=== PATIENT | male | born 1945 | race Caucasian/White ===

== ENCOUNTER 2024-06-09 08:51 | Inpatient (IN) | payer BC, MEDICARE, OTHER ==
[2024-06-09] MEDS ORDERED: Aspirin Chewable 81 MG TAB ONE (10:04)
[2024-06-09 10:11] LABS: ALT (SGPT) 36 U/L (8-55); AST (SGOT) 28 U/L (5-34); Alkaline Phosphatase 29 U/L (40-110); Anion Gap 16 mmol/L (10-20); BUN (Urea Nitrogen) 20 mg/dL (8.4-25.7); Bilirubin, Total 0.3 mg/dL (0.2-1.2); Calc. Creatinine Clearance 0 mL/min (70-130); Carbon Dioxide 27 mmol/L (23-31); Chloride 98 mmol/L (98-107); Estimated GFR 42; Glucose 172 mg/dL (83-110); Potassium 4.1 mmol/L (3.5-5.1); Sodium 137 mmol/L (136-145)
[2024-06-09 10:17] LABS: #Basophils Less than 0.03 10x3/uL (0.0-0.2); %Basophils 0.4 % (0.0-1.0); %Eosinophils 2.5 % (0.0-10.0); %Lymphocytes 15.1 % (21.0-51.0); %Monocytes 7.5 % (0.0-10.0); %Neutrophils 73.1 % (42.0-75.0); Hematocrit 38.2 % (42.0-52.0); Hemoglobin 13.3 g/dL (14.0-18.0); Mean Corpuscular HGB CONC 34.8 g/dL (32.0-36.0); Mean Corpuscular Hemoglobin 31.1 pg (27.0-31.0); Mean Corpuscular Volume 89.3 fL (78.0-98.0); Mean Platelet Volume 10.4 fL (7.4-10.4); Platelet Count 159 10x3/uL (130-400); RBC Distribution Width 13.9 % (11.5-14.5); Red Blood Cell (RBC) Count 4.28 mill/uL (4.70-6.10); Troponin I Less than 0.010 ng/mL (< 0.028)
[2024-06-09 10:20] LABS: PTT 27.9 sec (22.9-36.1); Prothrombin Time 13.3 sec (12.0-14.7)
[2024-06-09] MEDS ORDERED: Calcium Carbonate 500 MG ChewTAB PO PRN (10:44)
[2024-06-09] MEDS ORDERED: Ondansetron ODT 4 MG TAB PO PRN (10:44)
[2024-06-09] MEDS ORDERED: hydrALAZINE 20 MG/ML VIAL SLOW IVP PRN (10:47)
[2024-06-09] MEDS: Lactated Ringer's 1,000 ML IV SCH (14:19)
[2024-06-09 14:44] VITALS: BMI 25.3
[2024-06-09] MEDS ORDERED: Dextrose 50% Abboject 50 ML SYRINGE SLOW IVP PRN (16:10)
[2024-06-09] MEDS ORDERED: Dextrose 5% in Water 1,000 ML IV PRN (16:10)
[2024-06-09] MEDS ORDERED: Glucagon 1 MG/ML KIT IM PRN (16:10)
[2024-06-09] MEDS: Insulin Lispro 100 UNIT/ML 10 ML VIAL SC PRN (17:31)
[2024-06-09 18:44] LABS: Creatinine, Urine 88.37 mg/dL (22-328)
[2024-06-09] MEDS: Atorvastatin Calcium 40 MG TAB PO SCH (20:18)
[2024-06-09] MEDS: Allopurinol 100 MG TAB PO SCH (20:18)
[2024-06-09] MEDS: traZODone HCl 50 MG TAB PO SCH (21:22)
[2024-06-09] MEDS: Melatonin 3 MG TAB PO SCH (21:22)
[2024-06-10 04:37] LABS: #Basophils 0.03 10x3/uL (0.0-0.2); %Basophils 0.5 % (0.0-1.0); %Lymphocytes 23.3 % (21.0-51.0); %Monocytes 9.1 % (0.0-10.0); %Neutrophils 63.3 % (42.0-75.0); Hematocrit 36.6 % (42.0-52.0); Hemoglobin 12.3 g/dL (14.0-18.0); Mean Corpuscular HGB CONC 33.6 g/dL (32.0-36.0); Mean Corpuscular Hemoglobin 30.6 pg (27.0-31.0); Mean Platelet Volume 10.2 fL (7.4-10.4); Platelet Count 153 10x3/uL (130-400); Red Blood Cell (RBC) Count 4.02 mill/uL (4.70-6.10)
[2024-06-10] MEDS: Acetaminophen 325 MG TAB PO PRN (05:35)
[2024-06-10 05:37] LABS: Anion Gap 13 mmol/L (10-20); BUN (Urea Nitrogen) 16 mg/dL (8.4-25.7); Calc. Creatinine Clearance 44 mL/min (70-130); Calcium 9.8 mg/dL (7.8-10.44); Carbon Dioxide 29 mmol/L (23-31); Cardiac Risk 6.2 (Less than 4.5); Chloride 100 mmol/L (98-107); Cholesterol 181 mg/dl (< 200 Desired); Estimated GFR 50; Glucose 141 mg/dL (83-110); HDL Cholesterol 29 mg/dL (>60 Neg Risk); Potassium 3.5 mmol/L (3.5-5.1); Sodium 138 mmol/L (136-145); Triglycerides 634 mg/dL (Less than 150)
[2024-06-10] MEDS ORDERED: Electrolyte Replacement Protocol 1 EACH FS PRN (07:46)
[2024-06-10] MEDS ORDERED: Electrolyte Replacement Protocol FS PRN (08:00)
[2024-06-10] MEDS: Lorazepam 2 MG/ML VIAL SLOW IVP PRN (08:43)
[2024-06-10] MEDS ORDERED: Aspirin 81 mg Enteric Coated Tablet PO SCH (09:00)
[2024-06-10] MEDS: Multivit, Therapeutic 1 TAB PO SCH ×2 (10:27→20:26)
[2024-06-10] MEDS: DULoxetine 30 MG CAP PO SCH (10:27)
[2024-06-10] MEDS: Fish Oil 1,000 MG CAP PO SCH (10:27)
[2024-06-10] MEDS: Fenofibrate 48 MG TAB PO SCH (10:28)
[2024-06-10] MEDS: Pantoprazole 40 MG DR.TAB PO SCH (10:28)
[2024-06-10] MEDS: Potassium Chloride 20 MEQ TAB PO SCH (10:28)
[2024-06-10] MEDS: Dexamethasone 4 mg/ml Vial SLOW IVP SCH (10:29)
[2024-06-10] MEDS: levETIRAcetam 500 MG (5 mL) VIAL SLOW IVP SCH (10:29)
[2024-06-10 15:03] LABS: Potassium 4.7 mmol/L (3.5-5.1)
[2024-06-10] MEDS ORDERED: traZODone HCl 50 MG TAB PO PRN (19:06)
[2024-06-10] MEDS: glipiZIDE 10 MG TAB PO SCH (20:25)
[2024-06-10] MEDS: Metoprolol Succinate XL 25 MG ER.TAB PO SCH (20:25)
[2024-06-10] MEDS: Atorvastatin Calcium 20 MG TAB PO SCH (20:26)
[2024-06-10] MEDS: levETIRAcetam 500 MG TAB PO SCH (20:26)
[2024-06-10] MEDS: Senokot S 8.6-50 MG TAB PO SCH (20:26)
[2024-06-10] MEDS: Insulin Lispro 100 UNIT/ML 10 ML VIAL SC PRN (20:27)
[2024-06-10] MEDS: traZODone HCl 50 MG TAB PO PRN (20:29)
[2024-06-11 04:23] LABS: #Basophils Less than 0.03 10x3/uL (0.0-0.2); #Eosinophils Less than 0.03 10x3/uL (0.0-0.7); %Basophils 0.1 % (0.0-1.0); %Lymphocytes 8.2 % (21.0-51.0); %Monocytes 3.5 % (0.0-10.0); %Neutrophils 87.2 % (42.0-75.0); Hematocrit 38.1 % (42.0-52.0); Hemoglobin 13.2 g/dL (14.0-18.0); Mean Corpuscular HGB CONC 34.6 g/dL (32.0-36.0); Mean Corpuscular Hemoglobin 31.2 pg (27.0-31.0); Mean Corpuscular Volume 90.1 fL (78.0-98.0); Mean Platelet Volume 10.5 fL (7.4-10.4); Platelet Count 163 10x3/uL (130-400); RBC Distribution Width 13.6 % (11.5-14.5); Red Blood Cell (RBC) Count 4.23 mill/uL (4.70-6.10)
[2024-06-11 04:39] LABS: Anion Gap 15 mmol/L (10-20); BUN (Urea Nitrogen) 22 mg/dL (8.4-25.7); Calc. Creatinine Clearance 43 mL/min (70-130); Calcium 10.3 mg/dL (7.8-10.44); Carbon Dioxide 27 mmol/L (23-31); Chloride 98 mmol/L (98-107); Estimated GFR 49; Glucose 247 mg/dL (83-110); Magnesium 1.5 mg/dL (1.6-2.6); Potassium 4.6 mmol/L (3.5-5.1); Sodium 135 mmol/L (136-145)
[2024-06-11] MEDS: glipiZIDE 10 MG TAB PO SCH (09:19)
[2024-06-11] MEDS: Magnesium 2 GM/50 ML(in water) 2 GM in Premix 1 BAG IVPB SCH (09:20)
[2024-06-11] MEDS: Saxagliptin 5 MG TABLET PO SCH (10:48)
[2024-06-11 11:20] LABS: Prothrombin Time 13.3 sec (12.0-14.7)
[2024-06-11] MEDS: Insulin Glargine 30 UNITS/0.3 ML VIAL SC SCH (22:13)
[2024-06-12] MEDS ORDERED: Insulin Glargine 30 UNITS/0.3 ML VIAL SC SCH (09:00)
[2024-06-12] MEDS: Insulin Glargine 30 UNITS/0.3 ML VIAL SC SCH (11:54)
[2024-06-13 03:53] LABS: #Basophils Less than 0.03 10x3/uL (0.0-0.2); #Eosinophils Less than 0.03 10x3/uL (0.0-0.7); %Basophils 0.1 % (0.0-1.0); %Lymphocytes 9.7 % (21.0-51.0); %Monocytes 6.4 % (0.0-10.0); %Neutrophils 81.6 % (42.0-75.0); Hematocrit 35.5 % (42.0-52.0); Hemoglobin 12.4 g/dL (14.0-18.0); Mean Corpuscular HGB CONC 34.9 g/dL (32.0-36.0); Mean Corpuscular Hemoglobin 31.5 pg (27.0-31.0); Mean Corpuscular Volume 90.1 fL (78.0-98.0); Mean Platelet Volume 10.3 fL (7.4-10.4); Platelet Count 159 10x3/uL (130-400); RBC Distribution Width 13.7 % (11.5-14.5); Red Blood Cell (RBC) Count 3.94 mill/uL (4.70-6.10)
[2024-06-13 04:27] LABS: Anion Gap 15 mmol/L (10-20); BUN (Urea Nitrogen) 29 mg/dL (8.4-25.7); Calc. Creatinine Clearance 40 mL/min (70-130); Calcium 9.8 mg/dL (7.8-10.44); Carbon Dioxide 28 mmol/L (23-31); Chloride 96 mmol/L (98-107); Estimated GFR 45; Glucose 191 mg/dL (83-110); Magnesium 1.6 mg/dL (1.6-2.6); Potassium 4.6 mmol/L (3.5-5.1); Sodium 134 mmol/L (136-145)
[2024-06-13] MEDS: Insulin Glargine 30 UNITS/0.3 ML VIAL SC SCH (07:49)
[2024-06-13] MEDS: Magnesium 2 GM/50 ML(in water) 2 GM in Premix 1 BAG IVPB SCH (07:51)
[2024-06-13] MEDS: Sodium Chloride 0.9% 500 ML IV SCH (12:35)
[2024-06-13] MEDS: Dexamethasone 4 mg/ml Vial SLOW IVP SCH (13:08)
[2024-06-14 04:55] LABS: Anion Gap 11 mmol/L (10-20); BUN (Urea Nitrogen) 35 mg/dL (8.4-25.7); Calc. Creatinine Clearance 43 mL/min (70-130); Calcium 9.4 mg/dL (7.8-10.44); Carbon Dioxide 28 mmol/L (23-31); Chloride 99 mmol/L (98-107); Estimated GFR 49; Glucose 162 mg/dL (83-110); Magnesium 1.8 mg/dL (1.6-2.6); Potassium 4.4 mmol/L (3.5-5.1); Sodium 134 mmol/L (136-145)
[2024-06-14] MEDS: Magnesium 2 GM/50 ML(in water) 2 GM in Premix 1 BAG IVPB SCH (10:12)
[2024-06-14 11:02] LABS: Hemoglobin A1c 7.3 % (4.0-6.0)
[2024-06-15 04:31] LABS: Anion Gap 13 mmol/L (10-20); BUN (Urea Nitrogen) 34 mg/dL (8.4-25.7); Calc. Creatinine Clearance 43 mL/min (70-130); Calcium 9.5 mg/dL (7.8-10.44); Carbon Dioxide 27 mmol/L (23-31); Chloride 98 mmol/L (98-107); Estimated GFR 49; Glucose 225 mg/dL (83-110); Magnesium 1.8 mg/dL (1.6-2.6); Potassium 4.5 mmol/L (3.5-5.1); Sodium 133 mmol/L (136-145)
[2024-06-15] MEDS: Dexamethasone 4 mg/ml Vial SLOW IVP SCH (06:12)
[2024-06-15] MEDS ORDERED: Bacitracin Zinc Ointment 30 gm TUBE ONE (08:22)
[2024-06-15] MEDS ORDERED: Acetaminophen 500 MG TAB ONE (08:48)
[2024-06-15] MEDS ORDERED: fentaNYL PF 100 MCG/2 ML SYRINGE ONE (09:05)
[2024-06-15] MEDS ORDERED: Rocuronium Bromide 10 MG/ML (10ML VIAL) ONE (09:06)
[2024-06-15] MEDS ORDERED: Dexmedetomidine 200 MCG/2 ML VIAL ONE (09:06)
[2024-06-15] MEDS ORDERED: PROPOFOL 20 ML ONE (09:06)
[2024-06-15] MEDS ORDERED: Lidocaine 1% PF 5 ML VIAL ONE (09:06)
[2024-06-15] MEDS ORDERED: CEFAZOLIN 2 GM VIAL ONE (09:18)
[2024-06-15] MEDS ORDERED: Ondansetron PF 4 MG/2 ML Vial IVP PRN (09:48)
[2024-06-15] MEDS ORDERED: CEFAZOLIN 2 GM in Sodium Chloride 0.9% 100 ML IVPB SCH (10:00)
[2024-06-15] MEDS ORDERED: Dexamethasone 20 MG/5 ML VIAL ONE (10:02)
[2024-06-15] MEDS ORDERED: PHENYLEPHRINE-NS 100 MCG/ML 10 ML SYRINGE ONE (10:13)
[2024-06-15] MEDS ORDERED: Ondansetron PF 4 MG/2 ML Vial ONE (11:02)
[2024-06-15] MEDS ORDERED: SUGAMMADEX SODIUM 200 MG/2 ML VIAL ONE (11:25)
[2024-06-15] MEDS ORDERED: Promethazine HCl 25 MG/ML VIAL IM PRN (11:35)
[2024-06-15] MEDS ORDERED: Ondansetron HCl/PF 4 MG/2 ML Vial IVP PRN (11:35)
[2024-06-15] MEDS ORDERED: fentaNYL 50 mcg/mL 1 mL Vial ONE ×2 (12:11→12:36)
[2024-06-15] MEDS: Acetaminophen/Codeine 30-300mg Tablet PO PRN (14:39)
[2024-06-15] MEDS: Magnesium 2 GM/50 ML(in water) 2 GM in Premix 1 BAG IVPB SCH (16:35)
[2024-06-15 20:27] VITALS: BMI 25.3
[2024-06-15] MEDS: CEFAZOLIN 2 GM in Sodium Chloride 0.9% 100 ML IVPB SCH (21:55)
[2024-06-16 04:25] LABS: Anion Gap 14 mmol/L (10-20); BUN (Urea Nitrogen) 32 mg/dL (8.4-25.7); Calc. Creatinine Clearance 43 mL/min (70-130); Calcium 9.4 mg/dL (7.8-10.44); Carbon Dioxide 29 mmol/L (23-31); Chloride 98 mmol/L (98-107); Estimated GFR 49; Glucose 246 mg/dL (83-110); Sodium 136 mmol/L (136-145)
[2024-06-16] MEDS: Magnesium 2 GM/50 ML(in water) 2 GM in Premix 1 BAG IVPB SCH (10:42)
[2024-06-16] MEDS ORDERED: Dexamethasone 4 mg/ml Vial SLOW IVP SCH (15:57)
[2024-06-16] MEDS: Dexamethasone 4 mg/ml Vial SLOW IVP SCH (21:27)
[2024-06-17 04:30] LABS: Anion Gap 15 mmol/L (10-20); BUN (Urea Nitrogen) 38 mg/dL (8.4-25.7); Calc. Creatinine Clearance 48 mL/min (70-130); Calcium 9.5 mg/dL (7.8-10.44); Carbon Dioxide 27 mmol/L (23-31); Chloride 97 mmol/L (98-107); Estimated GFR 56; Glucose 227 mg/dL (83-110); Magnesium 1.9 mg/dL (1.6-2.6); Potassium 4.9 mmol/L (3.5-5.1); Sodium 134 mmol/L (136-145)
[2024-06-17] MEDS: Magnesium 2 GM/50 ML(in water) 2 GM in Premix 1 BAG IVPB SCH (09:31)
[2024-06-17] MEDS: Insulin Glargine 30 UNITS/0.3 ML VIAL SC SCH ×2 (09:33→21:25)
[2024-06-18 04:42] LABS: Anion Gap 14 mmol/L (10-20); BUN (Urea Nitrogen) 40 mg/dL (8.4-25.7); Calc. Creatinine Clearance 48 mL/min (70-130); Calcium 9.2 mg/dL (7.8-10.44); Carbon Dioxide 27 mmol/L (23-31); Chloride 97 mmol/L (98-107); Estimated GFR 55; Glucose 231 mg/dL (83-110); Magnesium 1.8 mg/dL (1.6-2.6); Potassium 4.7 mmol/L (3.5-5.1); Sodium 133 mmol/L (136-145)
[2024-06-18] MEDS: Magnesium 2 GM/50 ML(in water) 2 GM in Premix 1 BAG IVPB SCH (06:42)
[2024-06-18] MEDS: Insulin Glargine 30 UNITS/0.3 ML VIAL SC SCH (10:30)
[2024-06-18] MEDS: Polyethylene Glycol 3350 17 GM Packet PO PRN (10:51)
[2024-06-19 04:41] LABS: BUN (Urea Nitrogen) 42 mg/dL (8.4-25.7); Calc. Creatinine Clearance 44 mL/min (70-130); Calcium 9.7 mg/dL (7.8-10.44); Carbon Dioxide 29 mmol/L (23-31); Estimated GFR 50; Glucose 231 mg/dL (83-110); Magnesium 1.8 mg/dL (1.6-2.6)
[2024-06-19 05:34] LABS: Anion Gap 15 mmol/L (10-20); Chloride 96 mmol/L (98-107); Potassium 4.8 mmol/L (3.5-5.1); Sodium 134 mmol/L (136-145)
[2024-06-19] MEDS: Magnesium 2 GM/50 ML(in water) 2 GM in Premix 1 BAG IVPB SCH (08:23)
[2024-06-20 04:30] LABS: Anion Gap 15 mmol/L (10-20); BUN (Urea Nitrogen) 40 mg/dL (8.4-25.7); Calc. Creatinine Clearance 44 mL/min (70-130); Calcium 9.4 mg/dL (7.8-10.44); Carbon Dioxide 25 mmol/L (23-31); Chloride 98 mmol/L (98-107); Estimated GFR 50; Glucose 249 mg/dL (83-110); Magnesium 1.7 mg/dL (1.6-2.6); Potassium 4.3 mmol/L (3.5-5.1); Sodium 134 mmol/L (136-145)
[2024-06-20] MEDS: Magnesium 2 GM/50 ML(in water) 2 GM in Premix 1 BAG IVPB SCH (05:40)
[2024-06-21 04:37] LABS: Hematocrit 41.5 % (42.0-52.0); Hemoglobin 14.5 g/dL (14.0-18.0); Mean Corpuscular HGB CONC 34.9 g/dL (32.0-36.0); Mean Corpuscular Hemoglobin 31.5 pg (27.0-31.0); Mean Corpuscular Volume 90.2 fL (78.0-98.0); Mean Platelet Volume 10.6 fL (7.4-10.4); Platelet Count 153 10x3/uL (130-400); RBC Distribution Width 13.6 % (11.5-14.5)
[2024-06-21 04:50] LABS: Anion Gap 13 mmol/L (10-20); BUN (Urea Nitrogen) 42 mg/dL (8.4-25.7); Calc. Creatinine Clearance 45 mL/min (70-130); Calcium 9.8 mg/dL (7.8-10.44); Carbon Dioxide 28 mmol/L (23-31); Chloride 100 mmol/L (98-107); Estimated GFR 52; Glucose 280 mg/dL (83-110); Potassium 4.8 mmol/L (3.5-5.1); Sodium 136 mmol/L (136-145)
[2024-06-21 05:08] LABS: Band 2 % (5-11); Lymphocytes 5 % (21-51); Monocytes 8 % (0-10); Myelocyte 2 % (0-0); Neutrophil 83 % (42-75); Platelet Adequacy Comment Platelets Normal; RBC Morphology Within Normal Limits
[2024-06-22 07:25] LABS: Anion Gap 12 mmol/L (10-20); BUN (Urea Nitrogen) 37 mg/dL (8.4-25.7); Calc. Creatinine Clearance 46 mL/min (70-130); Carbon Dioxide 29 mmol/L (23-31); Chloride 100 mmol/L (98-107); Estimated GFR 53; Glucose 211 mg/dL (83-110); Magnesium 1.7 mg/dL (1.6-2.6); Potassium 4.5 mmol/L (3.5-5.1); Sodium 136 mmol/L (136-145)
[2024-06-22 07:46] LABS: Hematocrit 41.6 % (42.0-52.0); Hemoglobin 14.2 g/dL (14.0-18.0); Mean Corpuscular HGB CONC 34.1 g/dL (32.0-36.0); Mean Corpuscular Hemoglobin 31.1 pg (27.0-31.0); Mean Platelet Volume 10.2 fL (7.4-10.4); Platelet Count 137 10x3/uL (130-400); RBC Distribution Width 13.6 % (11.5-14.5); Red Blood Cell (RBC) Count 4.57 mill/uL (4.70-6.10)
[2024-06-22] MEDS: Magnesium 2 GM/50 ML(in water) 2 GM in Premix 1 BAG IVPB SCH (08:27)
[2024-06-22 08:44] LABS: Large Platelets 1.9 % (0-5); Lymphocytes 4 % (21-51); Metamyelocyte 1 % (0-0); Monocytes 6 % (0-10); Myelocyte 1 % (0-0); Neutrophil 83 % (42-75); Platelet Adequacy Comment Platelets Normal; Polychromasia SLIGHT = 2-3 cells HPF (0-2); Reactive Lymphocytes 6 % (0-10); Smudge Cells 11.7 %
[2024-06-24 05:45] LABS: Anion Gap 17 mmol/L (10-20); BUN (Urea Nitrogen) 37 mg/dL (8.4-25.7); Calc. Creatinine Clearance 45 mL/min (70-130); Calcium 9.4 mg/dL (7.8-10.44); Carbon Dioxide 26 mmol/L (23-31); Chloride 100 mmol/L (98-107); Estimated GFR 52; Glucose 287 mg/dL (83-110); Magnesium 1.6 mg/dL (1.6-2.6); Potassium 4.5 mmol/L (3.5-5.1); Sodium 138 mmol/L (136-145)
[2024-06-24] MEDS: Magnesium 2 GM/50 ML(in water) 2 GM in Premix 1 BAG IVPB SCH (10:36)
[2024-06-24] MEDS: Insulin Glargine 30 UNITS/0.3 ML VIAL SC SCH (20:35)
[2024-06-25] MEDS: Dexamethasone 1 MG TAB PO SCH (12:40)
[2024-06-26] MEDS: cefTRIAXone\\ROCEPHIN 1 GM in Sodium Chloride 0.9% 100 ML IVPB SCH (13:55)
[2024-06-26 14:08] LABS: Bilirubin Negative (Negative); Blood, Urine 3+ (Negative); CAUTI Indications for Culture Acute Hematuria; Glucose, Urine (Dipstick) Normal (Negative); Ketone, Urine Negative (Negative); Leukocyte 500 Leu/uL (Negative); Nitrite Negative (Negative); Protein, Urine (Dipstick) 50 mg/dL (Neg-Trace); RBC/HPF 21-50 HPF (0-3); Specific Gravity, Urine 1.015 (1.002-1.036); Squamous Epithelial None Seen HPF (0-3); Urobilinogen Normal mg/dL (Less than 2); WBC/HPF 21-50 HPF (0-3); pH, Urine 8.5 (5.0-9.0)
[2024-06-26 14:43] LABS: Bacteria/HPF 1+ HPF (None Seen); Clarity Cloudy (Clear)
[2024-06-26 14:44] LABS: Urine Culture Reflex Yes Yes
[2024-06-26 16:53] VITALS: BP 133/74; TEMP 98.1
== END 2024-06-26 15:40 | DRG 25 ==
LOC: ERS 08:51 → ERHOLD 10:44 → 2SE 13:54
PROVIDERS: ADMIT Internal Medicine; ATTEND Family Medicine
PROC: 4A10X4Z Monitoring of Central Nervous Electrical Activity, External Approach (ICD-10-PCS; principal; 2024-06-10)
PROC: 00B03ZX Excision of Brain, Percutaneous Approach, Diagnostic (ICD-10-PCS; 2024-06-15)
DX: C71.9 Malignant neoplasm of brain, unspecified (principal); G93.6 Cerebral edema; G81.94 Hemiplegia, unspecified affecting left nondominant side; N17.9 Acute kidney failure, unspecified; E87.1 Hypo-osmolality and hyponatremia; W19.XXXA Unspecified fall, initial encounter; E78.5 Hyperlipidemia, unspecified; M10.9 Gout, unspecified; I12.9 Hypertensive chronic kidney disease with stage 1 through stage 4 chronic kidney disease, or unspecified chronic kidney disease; E11.22 Type 2 diabetes mellitus with diabetic chronic kidney disease; R26.89 Other abnormalities of gait and mobility; N18.30 Chronic kidney disease, stage 3 unspecified; E11.65 Type 2 diabetes mellitus with hyperglycemia; E87.6 Hypokalemia; D63.1 Anemia in chronic kidney disease; E83.42 Hypomagnesemia; G40.909 Epilepsy, unspecified, not intractable, without status epilepticus; Z90.49 Acquired absence of other specified parts of digestive tract; Z90.89 Acquired absence of other organs; Z88.5 Allergy status to narcotic agent; Z79.899 Other long term (current) drug therapy; Z79.02 Long term (current) use of antithrombotics/antiplatelets; Z90.5 Acquired absence of kidney; Z85.528 Personal history of other malignant neoplasm of kidney
CPT/HCPCS: 0042T; 36415; 36416; 70450; 70496; 70498; 70553; 71045; 72125; 76376; 78306; 80048; 80053; 80061; 81001; 82570; 83036; 83735; 84300; 84443; 84484; 85025; 85610; 85730; 87077; 87086; 88307; 88325; 88331; 88334; 93005; 93306; 94760; 95700; 95711; 95957; A9503; C1713; J0696; J1100; J1815; J1953; J2060; J2405; J2704; J3010; J3475; J7030; J7120; J8540